=== PATIENT | female | born 1960 | race Caucasian/White ===

== ENCOUNTER → 2016-09-11 | Outpatient (REF) | payer BC ==
[2016-09-11 18:52] LABS: BASO # 0.1 K/mm3 (0.0-0.2); BASO % 0.7 % (0.0-1.0); EOS # 0.3 K/mm3 (0.0-0.50); EOS % 2.9 % (0.0-3.0); LARGE UNSTAINED CELL # 0.3 K/mm3 (0.0-0.4); LYMPH % 33.4 % (24.0-44.0); MEAN CORPUSCULAR HEMOGLOBIN 31.1 pg (27.0-33.0); MEAN CORPUSCULAR HGB CONC 32.5 g/dl (32.0-36.5); MEAN CORPUSCULAR VOLUME 95.7 fl (80.0-96.0); MONO # 0.6 K/mm3 (0.0-0.8); MONO % 6.1 % (0.0-5.0); NEUTROPHILS # 4.9 K/mm3 (1.8-7.7); PLATELET COUNT, AUTOMATED 408 k/mm3 (150-450); RED CELL DISTRIBUTION WIDTH 13.2 % (11.5-14.5); WHITE BLOOD COUNT 9.1 K/mm3 (4.0-10.0)
== END ==
LOC: M LAB REF 09:32
PROVIDERS: ATTEND Physician Assistant
DX: R50.9 Fever, unspecified (principal)

== ENCOUNTER → 2017-02-02 | Outpatient (REF) | payer BC ==
[2017-02-02 17:09] LABS: FREE T4 0.72 NG/DL (0.76-1.46)
== END ==
LOC: M LABDRAW1 15:32
PROVIDERS: ATTEND Internal Medicine Endocrinology, Diabetes & Metabolism
DX: E06.3 Autoimmune thyroiditis (principal)

== ENCOUNTER → 2017-06-05 | Outpatient (REF) | payer BC ==
[2017-06-05 16:53] LABS: FREE T4 0.87 NG/DL (0.76-1.46)
== END ==
LOC: M LABDRAW1 15:29
PROVIDERS: ATTEND Internal Medicine Endocrinology, Diabetes & Metabolism
DX: E06.3 Autoimmune thyroiditis (principal)

== ENCOUNTER → 2017-11-08 | Outpatient (REF) | payer BC ==
[2017-11-08 17:09] LABS: FREE T4 0.91 NG/DL (0.76-1.46); THYROID STIMULATING HORMONE 0.753 uIU/ML (0.358-3.740)
== END ==
LOC: M LABDRAW1 13:18
DX: E06.3 Autoimmune thyroiditis (principal)
CPT/HCPCS: 84443

== ENCOUNTER → 2018-04-17 | Outpatient (REF) | payer BC | LOC: M LAB REF 16:49 | DX: J02.9 Acute pharyngitis, unspecified (principal) | CPT/HCPCS: 87070 ==

== ENCOUNTER → 2018-05-14 | Outpatient (CLI) | payer BC | LOC: M WHC 08:41 | DX: Z12.31 Encounter for screening mammogram for malignant neoplasm of breast (principal); Z80.3 Family history of malignant neoplasm of breast; N60.31 Fibrosclerosis of right breast; N60.32 Fibrosclerosis of left breast | CPT/HCPCS: 77067 ==

== ENCOUNTER → 2018-05-14 | Outpatient (REF) | payer BC ==
[2018-05-16 14:49] LABS: HPV HYBRID CAPTURE II Negative (Negative)
== END ==
LOC: M SFHCWAGY 08:57
DX: Z12.4 Encounter for screening for malignant neoplasm of cervix (principal)
CPT/HCPCS: G0123

== ENCOUNTER → 2018-11-13 | Outpatient (REF) | payer BC ==
[2018-11-13 17:17] LABS: FREE T4 0.96 NG/DL (0.76-1.46); THYROID STIMULATING HORMONE 1.09 uIU/ML (0.358-3.740)
== END ==
LOC: M LABDRAW1 15:51
PROVIDERS: ATTEND Internal Medicine Endocrinology, Diabetes & Metabolism
DX: E06.3 Autoimmune thyroiditis (principal)

== ENCOUNTER → 2019-05-15 | Outpatient (REF) | payer BC | LOC: M SFHCWAGY 08:35 | PROVIDERS: ATTEND Nurse Practitioner Women's Health | DX: Z12.4 Encounter for screening for malignant neoplasm of cervix (principal) ==

== ENCOUNTER → 2019-05-15 | Outpatient (CLI) | payer BC ==
--- NOTE | 2019-05-15 11:08 | REPMRS ---
Patient History The patient states she had a clinical breast exam in 05/2019. Patient is postmenopausal. Family history of breast cancer at age 38 in mother, colorectal cancer at age 50 or over in maternal grandmother. Benign excisional biopsy of the right breast. Took hormonal contraceptives for 21 years. Digital Woman Screen Mammo: May 15, 2019 - Exam #: [id number] Bilateral CC and MLO view(s) were taken. Technologist: Floresita Julian, Technologist Prior study comparison: May 14, 2018, bilateral digital woman screen mammo performed at [facility]. May 11, 2017, digital woman screen mammo performed at [facility]. May 10, 2016, digital woman screen mammo performed at [facility]. FINDINGS: The breast tissue is heterogeneously dense. This may lower the sensitivity of mammography. There is a moderate amount of heterogeneously dense fibroglandular tissue which is fairly symmetric. There is no interval development of dominant mass, architectural distortion, or grouped microcalcification typical of malignancy. There has been no change in the appearance of the mammogram from the prior studies. 3-D tomosynthesis shows no additional findings. Assessment: BI-RADS/ACR category 1 mammogram. Negative Mammogram. Recommendation Routine screening mammogram of both breasts in 1 year (for women over age 40). This patient's Lifetime Breast Cancer RIsk is estimated at 16.5 %. This mammogram was interpreted with the aid of an FDA-approved computer-aided dectection system. Electronically Signed By: Darci Chapman MD 05/15/19 [id number]
== END ==
LOC: M WHC 08:11
PROVIDERS: ATTEND Nurse Practitioner Women's Health
DX: Z12.31 Encounter for screening mammogram for malignant neoplasm of breast (principal)

== ENCOUNTER → 2019-12-30 | Outpatient (CLI) | payer BC ==
[2019-12-30 16:04] LABS: FREE T4 0.79 NG/DL (0.76-1.46); THYROID STIMULATING HORMONE 1.13 uIU/ML (0.358-3.740)
== END ==
LOC: M PLALAB 13:52
PROVIDERS: ATTEND Nurse Practitioner Family
DX: E06.3 Autoimmune thyroiditis (principal)

== ENCOUNTER → 2020-05-29 | Outpatient (REF) | payer BC | LOC: M SFHCWAGY 13:22 | PROVIDERS: ATTEND Nurse Practitioner Women's Health | DX: Z12.4 Encounter for screening for malignant neoplasm of cervix (principal); N88.8 Other specified noninflammatory disorders of cervix uteri ==

== ENCOUNTER → 2020-05-29 | Outpatient (CLI) | payer BC ==
--- NOTE | 2020-05-29 10:40 | REPMRS ---
Patient History The patient states she had a clinical breast exam in May 2020. Family history of breast cancer at age 38 in mother, colorectal cancer at age 50 or over in maternal grandmother. Benign excisional biopsy of the right breast. Took hormonal contraceptives for 21 years. 3D TOMOSYNTHESIS WAS PERFORMED. [facility] Volpara breast density b. Digital Woman Screen Mammo: May 29, 2020 - Exam #: [id number] Bilateral CC and MLO view(s) were taken. Technologist: Lorelei Morales, Technologist Prior study comparison: May 15, 2019, bilateral digital woman screen mammo performed at [facility]. May 14, 2018, bilateral digital woman screen mammo performed at [facility]. FINDINGS: There are scattered fibroglandular densities. There has been no change in the appearance of the mammogram from the prior studies. There is a mild amount of residual fibroglandular tissue which is fairly symmetric. There is no interval development of dominant mass, architectural distortion, or clustered microcalcification suggestive of malignancy. Assessment: BI-RADS/ACR category 1 mammogram. Negative Mammogram. Recommendation Routine screening mammogram in 1 year (for women over age 40). This mammogram was interpreted with the aid of an FDA-approved computer-aided dectection system. Electronically Signed By: Jeet Braga MD 05/29/20 [id number]
== END ==
LOC: M WHC 08:01
PROVIDERS: ATTEND Nurse Practitioner Women's Health
DX: Z12.31 Encounter for screening mammogram for malignant neoplasm of breast (principal); Z80.3 Family history of malignant neoplasm of breast; Z80.0 Family history of malignant neoplasm of digestive organs

== ENCOUNTER → 2020-12-02 | Outpatient (CLI) | payer BC ==
--- NOTE | 2020-12-02 18:23 | REP ---
INDICATION: ABNORMAL FINDING OF LUNG FIELD. Right rib pain after injury. COMPARISON: None. TECHNIQUE: Five views including PA chest x-ray. An opaque BB marker is affixed to the skin at the site of the localized pain for rib radiographs. FINDINGS: PA chest radiograph is normal. There is no evidence of infiltrate or free subdiaphragmatic air. Mediastinum is not widened. No pneumothorax is seen. There is an acute nondisplaced fracture of the anterior end of the right 7th rib which underlies the opaque BB marker. There is diffuse osteopenia. No other rib fracture is visible. No bony destructive lesion is seen. IMPRESSION: Acute nondisplaced anterior rib fracture, rib 7. Otherwise no acute disease. <Electronically signed by Darci Chapman > 12/02/20 [id number]
== END ==
LOC: M RAD 17:18
PROVIDERS: ATTEND Internal Medicine
DX: S22.31XA Fracture of one rib, right side, initial encounter for closed fracture (principal); X58.XXXA Exposure to other specified factors, initial encounter; Y92.89 Other specified places as the place of occurrence of the external cause

== ENCOUNTER → 2021-01-06 | Outpatient (CLI) | payer BC ==
--- NOTE | 2021-01-06 08:54 | DEXAMM ---
INDICATION: M85.80 [facility] DISRD OF BONE DENSITY AND STRUCTURE. COMPARISON: None. TECHNIQUE: Bone density was measured using dual-energy x-ray absorptionmetry (DEXA). FINDINGS: AP SPINE L1-L4 BMD 0.784 g/cm2 Young Adult T-Score -3.3 Age Matched Z-Score -2.1. LT FEMUR, TOTAL BMD 0.839 g/cm2 Young Adult T-Score -1.3 Age Matched Z-Score -0.4. LT NECK BMD 0.771 g/cm2 Young Adult T-Score -1.9 Age Matched Z-Score -0.7. RT FEMUR, TOTAL BMD 0.913 g/cm2 Young Adult T-Score -0.8 Age Matched Z-Score 0.2. RT NECK BMD 0.754 g/cm2 Young Adult T-Score -2.0 Age Matched Z-Score -0.8. IMPRESSION: There is osteoporosis of the spine. There is low bone density of the left hip. There is low bone density of the right hip. FOLLOW-UP: Recommendation for the next bone density exam: 2 years. <Electronically signed by Darci Chapman > 01/06/21 [id number]
== END ==
LOC: M WHC 07:41
PROVIDERS: ATTEND Internal Medicine
DX: M85.80 Other specified disorders of bone density and structure, unspecified site (principal)

== ENCOUNTER → 2021-01-13 | Outpatient (REF) | payer BC ==
[2021-01-13 12:51] LABS: TOTAL PROTEIN 7.4 GM/DL (6.4-8.2)
[2021-01-14 14:07] LABS: ALBUMIN 4.51 GM/DL (3.29-5.55); ALBUMIN % 60.9 % (55.8-66.1); ALPHA-1-GLOBULIN % 3.7 % (2.9-4.9); ALPHA-1-GLOBULINS 0.27 GM/DL (0.17-0.41); ALPHA-2-GLOBULINS 0.59 GM/DL (0.42-0.99); BETA-1-GLOBULINS 0.44 GM/DL (0.28-0.60); BETA-1-GLOBULINS % 5.9 % (4.7-7.2); BETA-2-GLOBULINS 0.33 GM/DL (0.19-0.55); BETA-2-GLOBULINS % 4.4 % (3.2-6.5); GAMMA GLOBULIN % 17.1 % (11.1-18.8); GAMMA GLOBULINS 1.27 GM/DL (0.65-1.58)
== END ==
LOC: M LAB REF 12:04
PROVIDERS: ATTEND Internal Medicine
DX: M81.8 Other osteoporosis without current pathological fracture (principal)

== ENCOUNTER → 2021-04-19 | Outpatient (CLI) | payer BC | LOC: M PLALAB 10:15 | PROVIDERS: ATTEND Internal Medicine | DX: E03.9 Hypothyroidism, unspecified (principal) ==

== ENCOUNTER → 2021-06-11 | Outpatient (CLI) | payer BC | LOC: M PLALAB 11:55 | PROVIDERS: ATTEND Internal Medicine | DX: R94.6 Abnormal results of thyroid function studies (principal) ==

== ENCOUNTER → 2021-06-24 | Outpatient (REF) | payer BC | LOC: M SFHCWAGY 13:24 | PROVIDERS: ATTEND Nurse Practitioner Women's Health | DX: Z12.4 Encounter for screening for malignant neoplasm of cervix (principal); Z01.419 Encounter for gynecological examination (general) (routine) without abnormal findings ==

== ENCOUNTER → 2021-06-24 | Outpatient (CLI) | payer BC ==
--- NOTE | 2021-06-25 12:21 | REPMRS ---
Patient History The patient states she had a clinical breast exam in June 2021. Family history of breast cancer at age 38 in mother, colorectal cancer at age 50 or over in maternal grandmother. Benign excisional biopsy of the right breast. Took hormonal contraceptives for 21 years. Patient states no breast complaints today. Patient has signed MRS History Sheet. Digital Woman Screen Mammo: June 24, 2021 - Exam #: [id number] Bilateral CC and MLO view(s) were taken. Technologist: Lorelei Morales, Technologist Prior study comparison: May 29, 2020, bilateral digital woman screen mammo performed at [facility]. May 15, 2019, bilateral digital woman screen mammo performed at [facility]. FINDINGS: The breast tissue is heterogeneously dense. This may lower the sensitivity of mammography. Screening. Digital screening (2D) mammography was performed bilaterally in the CC and MLO projections. Additionally, breast tomosynthesis (3D mammography) was performed bilaterally in the CC and MLO projections. Todays exam was compared to the prior exam/exams. By history, the patient has no complaints of a palpable breast abnormality or other significant breast complaints. The breasts are unchanged in size and shape. Once again, dense heterogenous fibroglandular elements are seen bilaterally in a stable appearing pattern but to such a degree that the sensitivity of the mammogram in detecting cancer is decreased.There are no jorge-soft tissue densities or spiculated masses. There is no internal architectural distortion.Once again, stable benign appearing calcifications are seen. There are no suspicious jorge-calcific clusters. Skin thickening or nipple retraction is not present. IMPRESSION: BI-RADS Category 2- Benign Findings. There is no evidence of malignant alteration of the breasts. Followup examination recommended in one year. The Volpara volumetric breast density category is C, the breasts are heterogenously dense which may obscure small masses. This mammogram was read with the assistance of Dopios,an FDA approved computer aided detection system for mammography. The lifetime Tyrer-Cuzick score is 15 % Due to the density of the breasts or Tyrer Cuzick score of 20% or greater, MRI/whole breast screening ultrasound is warranted. Negative x-ray reports should not delay surgical consultation if a dominant or clinically suspicious mass is present. Not all breast cancers can be identified by mammography. Therefore, we recommend that you continue to perform regular breast self-examination and physical examination and then promptly contact your physician of any concerns or changes. Adenosis and dense breasts may obscure an underlying neoplasm. Assessment: BI-RADS/ACR category 2 mammogram. Benign Findings. Recommendation Routine screening mammogram of both breasts in 1 year. Electronically Signed By: Jaswinder Veronica DO 06/25/21 0188
== END ==
LOC: M WHC 07:12
PROVIDERS: ATTEND Nurse Practitioner Women's Health
DX: Z12.31 Encounter for screening mammogram for malignant neoplasm of breast (principal)

== ENCOUNTER 2021-07-14 13:59 | Outpatient (CLI) | payer BC ==
[~2021-07-14] VITALS: Ht 167.6 cm; Wt 65.0 kg
[~2021-07-14 13:59] MED LIST: ALBUTEROL 90 MCG/ACT 8GM HFA INHALER INH PRN; ALBUTEROL SULFATE 2.5 MG/0.5 ML INH NEB SOLN INH PRN; EPINEPHrine INJ 1 MG/ML 1ML AMP IM PRN; NS 1,000 ML IV SCH; diphenhydrAMINE 50MG/ML VIAL (J1200) IV PRN; methylPREDNISolone 125MG 2ML VIAL IV PRN
[2021-07-14] MEDS ORDERED: CASIRIVIMAB/IMDEVIMAB 1,200 MG in NS 250 ML IV ONE (14:00)
[2021-07-14 14:28] VITALS: BP 113/56
[2021-07-14 14:58] VITALS: BP 110/55
[2021-07-14 15:28] VITALS: BP 111/54
[2021-07-14 16:28] VITALS: BP 111/52
== END 2021-07-14 16:28 | disposition home or self-care (01) ==
LOC: M OPCLI4PR 13:59
PROVIDERS: ATTEND Physician Assistant
DX: U07.1 COVID-19 (principal)

== ENCOUNTER → 2021-08-09 | Outpatient (CLI) | payer BC ==
[2021-08-09 11:22] LABS: FREE T4 0.73 NG/DL (0.76-1.46); THYROID STIMULATING HORMONE 3.71 uIU/ML (0.358-3.740)
== END ==
LOC: M PLALAB 08:20
PROVIDERS: ATTEND Internal Medicine
DX: R79.89 Other specified abnormal findings of blood chemistry (principal)

== ENCOUNTER → 2022-02-10 | Outpatient (CLI) | payer BC | LOC: M WHC 07:29 | PROVIDERS: ATTEND Internal Medicine | DX: M85.88 Other specified disorders of bone density and structure, other site (principal); M85.851 Other specified disorders of bone density and structure, right thigh; M85.852 Other specified disorders of bone density and structure, left thigh ==

== ENCOUNTER → 2022-02-18 | Outpatient (CLI) | payer BC ==
[2022-02-18 11:50] LABS: BLOOD UREA NITROGEN 20 MG/DL (7-18); CALCIUM LEVEL 9.5 MG/DL (8.8-10.2); CARBON DIOXIDE LEVEL 31 MEQ/L (21-32); CHLORIDE LEVEL 105 MEQ/L (98-107); GLOMERULAR FILTRATION RATE > 60.0 (>45); GLUCOSE, FASTING 103 MG/DL (70-100); POTASSIUM SERUM 4.9 MEQ/L (3.5-5.1); SODIUM LEVEL 140 MEQ/L (136-145)
[2022-02-18 12:49] LABS: TOTAL 25(OH) VITAMIN D 38.6 NG/ML (30.0-100.0)
== END ==
LOC: M PLALAB 06:59
PROVIDERS: ATTEND Internal Medicine
DX: M81.0 Age-related osteoporosis without current pathological fracture (principal)

== ENCOUNTER → 2022-06-29 | Outpatient (REF) | payer BC | LOC: M PLALAB 08:39 | PROVIDERS: ATTEND Nurse Practitioner Family | DX: Z12.4 Encounter for screening for malignant neoplasm of cervix (principal) | CPT/HCPCS: 87624; G0123 ==

== ENCOUNTER → 2022-06-29 | Outpatient (CLI) | payer BC | LOC: M WHC 07:20 | PROVIDERS: ATTEND Nurse Practitioner Family | DX: Z12.31 Encounter for screening mammogram for malignant neoplasm of breast (principal) ==

== ENCOUNTER → 2022-07-05 | Outpatient (CLI) | payer BC | LOC: M WHC 08:08 | PROVIDERS: ATTEND Advanced Practice Midwife | DX: Z12.31 Encounter for screening mammogram for malignant neoplasm of breast (principal) ==

== ENCOUNTER → 2022-12-20 | Outpatient (CLI) | payer BC ==
[2022-12-20 13:50] LABS: PTH INTACT 63.1 PG/ML (18.5-88.0)
[2022-12-20 13:53] LABS: THYROGLOBULIN ANTIBODY < 15.0 U/ML (<60.0); THYROID PEROXIDASE ANTIBODY < 28.0 U/ML (<60.0)
[2022-12-20 13:54] LABS: THYROID STIMULATING HORMONE 2.744 uIU/ML (0.55-4.78)
[2022-12-20 13:57] LABS: FREE T4 0.84 NG/DL (0.89-1.76)
== END ==
LOC: M PLALAB 11:24
DX: R79.89 Other specified abnormal findings of blood chemistry (principal)

== ENCOUNTER → 2023-02-14 | Outpatient (CLI) | payer BC | LOC: M WHC 08:02 | PROVIDERS: ATTEND Physician Assistant | DX: M81.0 Age-related osteoporosis without current pathological fracture (principal) ==

== ENCOUNTER → 2023-06-30 | Outpatient (REF) | payer BC ==
[2023-06-30 18:18] LABS: APPEARANCE, URINE CLEAR (CLEAR); BACTERIA, URINE AUTO NEGATIVE (NEGATIVE); BILIRUBIN, URINE AUTO NEGATIVE (NEGATIVE); BLOOD, URINE BLOOD NEGATIVE (NEGATIVE); COLOR, URINE YELLOW (YELLOW); GLUCOSE, URINE (UA) AUTO NEGATIVE (NEGATIVE); KETONE, URINE AUTO NEGATIVE (NEGATIVE); LEUKOCYTE ESTERASE, URINE AUTO NEGATIVE (NEGATIVE); NITRITE, URINE AUTO NEGATIVE (NEGATIVE); PROTEIN, URINE AUTO NEGATIVE (NEGATIVE); RBC, URINE AUTO 1 /HPF (0-3); SPECIFIC GRAVITY URINE AUTO 1.011 (1.002-1.035); SQUAMOUS EPITHELIAL CELL UR AU 1 /HPF (0-6); UROBILINOGEN, URINE AUTO 0.2 mg/dL (0.0-2.0); WBC, URINE AUTO 0 /HPF (0-3)
== END ==
LOC: M PLALAB 15:48
PROVIDERS: ATTEND Obstetrics & Gynecology
DX: R31.9 Hematuria, unspecified (principal)

== ENCOUNTER → 2023-06-30 | Outpatient (CLI) | payer BC | LOC: M WHC 09:16 | PROVIDERS: ATTEND Obstetrics & Gynecology | DX: Z12.31 Encounter for screening mammogram for malignant neoplasm of breast (principal) ==

== ENCOUNTER → 2024-07-15 | Outpatient (CLI) | payer BC, SELFPAY | LOC: M WHC 09:36 | PROVIDERS: ATTEND Obstetrics & Gynecology | DX: Z12.31 Encounter for screening mammogram for malignant neoplasm of breast (principal) ==

== ENCOUNTER → 2024-07-15 | Outpatient (REF) | payer BC ==
[2024-07-17 15:17] LABS: HPV APTIMA Not Detected (Not Detected)
== END ==
LOC: M PLALAB 10:32
PROVIDERS: ATTEND Obstetrics & Gynecology
DX: Z01.419 Encounter for gynecological examination (general) (routine) without abnormal findings (principal); N90.5 Atrophy of vulva
CPT/HCPCS: 87624; G0123

== ENCOUNTER → 2024-10-30 | Outpatient (REF) | payer BC | LOC: M LAB REF 12:43 | PROVIDERS: ATTEND Internal Medicine | DX: E03.9 Hypothyroidism, unspecified (principal) ==

== ENCOUNTER → 2025-02-05 | Outpatient (CLI) | payer BC | LOC: M RAD 16:14 | PROVIDERS: ATTEND Physician Assistant | DX: M47.814 Spondylosis without myelopathy or radiculopathy, thoracic region (principal); M54.2 Cervicalgia; M54.6 Pain in thoracic spine ==

== ENCOUNTER → 2025-02-06 | Outpatient (CLI) | payer BC | LOC: M PLALAB 15:09 | PROVIDERS: ATTEND Internal Medicine | DX: E03.9 Hypothyroidism, unspecified (principal) ==

== ENCOUNTER → 2025-02-10 | Outpatient (REF) | payer BC ==
[2025-02-10 15:40] LABS: C REACTIVE PROTEIN QUANTITATIV < 0.50 MG/DL (<1.0)
[2025-02-10 15:41] LABS: RHEUMATOID FACTOR QUANT 3.6 IU/ML (<14)
== END ==
LOC: M LAB REF 14:35
PROVIDERS: ATTEND Internal Medicine
DX: M25.50 Pain in unspecified joint (principal); M79.10 Myalgia, unspecified site

== ENCOUNTER → 2025-02-17 | Outpatient (CLI) | payer BC | LOC: M WHC 07:42 | PROVIDERS: ATTEND Internal Medicine | DX: M81.0 Age-related osteoporosis without current pathological fracture (principal); M85.89 Other specified disorders of bone density and structure, multiple sites ==

== ENCOUNTER → 2025-05-20 | Outpatient (REF) | payer BC ==
[2025-05-20 16:41] LABS: CALCIUM, 24 HOUR URINE 387.2 MG/24HR (42-353)
== END ==
LOC: M LAB REF 11:42
PROVIDERS: ATTEND Student in an Organized Health Care Education/Training Program
DX: M81.0 Age-related osteoporosis without current pathological fracture (principal)